=== PATIENT | female | born 1965 | race Caucasian/White ===

== ENCOUNTER 2020-07-07 09:16 | Emergency (ER) | payer OTHER ==
[2020-07-07 11:34] LABS: BUN/CREATININE RATIO 12 (0-10)
[2020-07-07 11:54] LABS: HEMOGLOBIN 13.6 gm/dl (12.3-15.3); RED BLOOD COUNT 4.27 M/UL (4.00-5.10); WHITE BLOOD COUNT 7.1 K/UL (4.5-11.0)
[2020-07-07] MEDS ORDERED: KEFLEX CAP 250250 MG PO (12:26)
== END 2020-07-07 13:00 | disposition home or self-care (01) ==
LOC: ER1 09:16
PROVIDERS: Physician Assistant
DX: L03.115 Cellulitis of right lower limb (principal); M06.9 Rheumatoid arthritis, unspecified; Z88.5 Allergy status to narcotic agent; Z88.1 Allergy status to other antibiotic agents; I89.0 Lymphedema, not elsewhere classified
CPT/HCPCS: 80053; 84439; 84443; 85025; 85652; 86140; 99283

== ENCOUNTER → 2020-10-21 | Outpatient (CLI) | payer OTHER ==
[~2020-10-21] MED LIST: KEFLEX CAP 250250 MG PO
== END ==
LOC: MAMO 10:11
DX: Z12.31 Encounter for screening mammogram for malignant neoplasm of breast (principal); R61 Generalized hyperhidrosis; Z78.0 Asymptomatic menopausal state
CPT/HCPCS: 77063; 77067

== ENCOUNTER → 2021-09-04 | Outpatient (CLI) | payer OTHER | LOC: EXRD 10:51 | DX: M54.50 Low back pain, unspecified (principal); M47.816 Spondylosis without myelopathy or radiculopathy, lumbar region; G89.29 Other chronic pain | CPT/HCPCS: 72110 ==